=== PATIENT | male | born 1960 | race Caucasian/White ===

== ENCOUNTER → 2017-06-25 | Outpatient (CLI) | payer OTHER ==
[~2017-06-25] MED LIST: AMLO2.5T PO; ASPI81TA28 PO; LISI-461 PO
== END | disposition home or self-care (01) ==
LOC: C.CPL 11:21
PROVIDERS: ATTEND Orthopaedic Surgery
DX: M19.011 Primary osteoarthritis, right shoulder (principal)

== ENCOUNTER 2025-07-13 12:35 | Observation (INO) ==
[2025-07-13 13:20] LABS: Hematocrit (blood only) 43.8 % (42.0-52.0); Hemoglobin 15.2 g/dL (14.0-18.0); Immature Granulocytes # (auto) 0.06 K/uL (0.01-0.20); Immature Granulocytes % (auto) 0.3 %; Mean Corpuscular Hemoglobin 32.3 pg (25.0-34.0); Mean Corpuscular Volume 93.2 fL (80.0-100.0); Platelet Count 264 K/uL (130-400); RDW Standard Deviation 45.1 fL (36.4-46.3); Red Blood Count 4.70 M/uL (4.70-6.10); White Blood Count 19.70 K/ul (4.8-10.8)
--- NOTE | 2025-07-13 13:25 | Emergency Department Note ---
Impression & Plan Hypoxia, Pneumonia ED Provider Note CHIEF COMPLAINT: Shortness of breath, right upper quadrant pain, chest pain HISTORY OF PRESENTING ILLNESS: Patient is a 64-year-old male who presents to the emergency department today for complaints of shortness of breath and right upper quadrant pain. He reports an onset of about 3 weeks ago. He was seen at urgent care and started on an antibiotic for pneumonia but never had a chest x-ray completed. He reports taking the full course of the antibiotic and then a day or 2 after completing it his symptoms got worse again. He went back to urgent care was placed on a second antibiotic and treated with another course of antibiotics. The day after starting the antibiotics he went on a cruise to the [facility]. 3 weeks ago he had a recent colonoscopy. He is an ex-smoker but denies drug use. He does report a productive cough of thick blood-tinged green/yellow mucus. He denies any lightheadedness, dizziness, syncope, nausea, vomiting, diarrhea. Patient denies chest pain, sob, breathing difficulties, abdominal pain, headache, fevers/chills, blood in stool or urine, any recent illness, or any recent travel. REVIEW OF SYSTEMS: See HPI for pertinent positives and pertinent negatives. ALLERGIES: See below MEDICATIONS: See below PAST MEDICAL HISTORY: See below PHYSICAL EXAM: VITALS: Vitals are noted on the nurse's note and reviewed by myself. GENERAL: Non toxic, in no acute distress, non-diaphoretic. SKIN: Capillary refill <2 sec. EYES: PERRLA. EOMI. Conjunctivae without injection, sclerae without icterus. NOSE: Patent without discharge. MOUTH: Mucous membranes moist. Uvula midline. Airway patent. NECK: Supple without nuchal rigidity. HEART: Regular rate and rhythm without murmurs gallops or rubs. LUNGS: Clear to auscultation bilaterally without wheezes, rales or rhonchi. No retractions or accessory muscle use. ABDOMEN: Positive bowel sounds x 4. Normal tympanic percussion. Soft, nontender to palpation. No masses or hepatosplenomegaly. Mccarthy sign negative. No CVA tenderness. No guarding, rigidity, or rebound tenderness. No focal RLQ or LLQ tenderness. MUSCULOSKELETAL: No gross musculoskeletal defects. NEURO: Patient was alert and oriented. No focal neurological deficits. DIFFERENTIAL DIAGNOSIS: Differential diagnosis includes acute coronary syndrome, pulmonary embolism, pneumothorax, pericarditis, myocarditis, endocarditis, anxiety, musculoskeletal pain, GERD, costochondritis, pneumonia, among others. ED COURSE AND MEDICAL DECISION MAKING: HISTORY FROM INDEPENDENT HISTORIAN: History was provided by the patient and his who is at bedside and secondary historian. MONITOR: Continuous registered nurse cardiac telemetry: Order was placed for continuous registered nurse cardiac telemetry. Patient was placed on the registered nurse cardiac telemetry and continuous pulse ox. Patient was noted to be in normal sinus rhythm at an initial rate of 82 bpm per my interpretation. EKG: EKG was interpreted by myself as normal sinus rhythm at a rate of 85 bpm. INTERPRETATION OF LABS: I interpreted the labs with full lab results as below in the lab section of this note. Laboratory results pertinent to the emergent complaint are discussed in the MDM section below. The patient was advised to follow up with their PCP and/or specialist(s) for further outpatient monitoring and management of any abnormal results. INTERPRETATION OF IMAGING: Imaging studies were interpreted by myself and read by radiology as per the imaging section of this note. The patient was advised to follow up with their PCP and/or specialist(s) for further outpatient management of any non-emergent abnormal findings. CHRONIC MEDICAL/SOCIAL CONDITIONS AFFECTING CARE: No social concerns were identified as barriers to patients care. ESCALATION OF CARE CONSIDERED: I considered admission on this patient due to a persistent ongoing pneumonia. CONSULTATIONS: I consulted with Dr. Arredondo for admission and the patient was accepted. SUMMARY: I examined the patient for complaints of shortness of breath, chest pain. A physical exam and history were performed. Nursing notes, EMR, and medication list were personally reviewed. This patient presents with dyspnea, most likely secondary to persistent pneumonia. Presentation not consistent with acute cardiac etiologies to include ACS, CHF, pericardial effusion / tamponade . Presentation concerning for pneumonia or PE. Patient had recent travel, colonoscopy, with hemoptysis. CTA PE rule out was negative for PE. Chest x-ray showed no acute findings. CBC with leukocytosis with white blood cell count of 19.70. No anemia or thrombocytopenia. PT/INR and APTT were normal. CMP without emergent findings. Troponin 4.2. Pro-Sami 0.08. Lactate was 1. Patient was given 1 L normal saline and started on Rocephin 2 g here in the emergency department. Patient began to desat into the upper 80s and was placed on 2 L of oxygen via nasal cannula with improvement to an O2 sat of 91%. CT of the abdomen and pelvis showed no acute infectious or inflammatory findings. With the patient's persistent symptoms and oxygen requirement I consulted with Dr. Cross who accepts the patient for admission to the hospital. DIAGNOSIS: Pneumonia, hypoxia TREATMENT PLAN/DISCHARGE INSTRUCTIONS: Admit to hospitalist services. The chart was completed utilizing [employer] Speech voice recognition software.Grammatical errors, random word insertions, pronoun errors, and incomplete sentences are an occasional consequence of this system due to software limitations, ambient noise, and hardware issues.Any formal questions or concerns about the content, text, or information contained within the body of this dictation should be directly addressed to the physician for clarification. Past Med/Surg History Problem List (Updated 07/13/25 @ 16:15 by XAVIER Bajwa) Hypoxia (Acute) Pneumonia (Acute) Hx of shoulder surgery (Acute) Hypertension (Chronic) Asthma (Chronic) Chest pain (Acute) Dizziness Social History Smoking Status: Never smoker Preferred Language: Austrian Feels Safe at Home: Yes Allergies Allergies Allergy/AdvReac Type Severity Reaction Status Date / Time No Known Allergies Allergy Mild Unverified 08/18/20 09:04 Home Meds Home Medications Medication Instructions Recorded Confirmed albuterol sulfate 90 mcg/actuation 2 puff inhalation Q4 PRN Wheezing 02/08/25 07/13/25 aerosol inhaler fluticasone propionate 50 2 spray intranasal QAM 02/08/25 07/13/25 mcg/actuation nasal spray,suspension Results & Data (ED) Vital Signs Vital Signs - 24 hr 07/13/25 12:35 07/13/25 12:58 07/13/25 12:58 Temperature 37 C Temperature Source Temporal Artery Scan Pulse Rate 89 Pulse Rate [Apical] Respiratory Rate 24 Respiratory Effort / Characteristics Non-Labored Spontaneous Non-Labored SOB on Exertion Respiratory Depth Normal Respiratory Pattern Regular Blood Pressure 176/92 H Blood Pressure [Right Arm] Blood Pressure Mean 120 Blood Pressure Mean [Right Arm] Blood Pressure Position Sitting Pulse Oximetry 92 93 Oxygen Delivery Method Room Air Room Air Room Air Oxygen Flow Rate Sepsis Recent Fever Within 48 Hours No Sepsis New/Unexplained Change in Mental Status No Sepsis Action Taken by Nursing No Action Required 07/13/25 12:58 07/13/25 13:18 07/13/25 14:00 Temperature Temperature Source Pulse Rate 83 82 Pulse Rate [Apical] 82 Respiratory Rate 18 18 Respiratory Effort / Characteristics Non-Labored Spontaneous Respiratory Depth Normal Respiratory Pattern Regular Blood Pressure Blood Pressure [Right Arm] 126/83 Blood Pressure Mean Blood Pressure Mean [Right Arm] 97 Blood Pressure Position Pulse Oximetry 93 88 L Oxygen Delivery Method Room Air Room Air Oxygen Flow Rate Sepsis Recent Fever Within 48 Hours Sepsis New/Unexplained Change in Mental Status Sepsis Action Taken by Nursing 07/13/25 14:02 Temperature Temperature Source Pulse Rate Pulse Rate [Apical] Respiratory Rate Respiratory Effort / Characteristics Respiratory Depth Respiratory Pattern Blood Pressure Blood Pressure [Right Arm] Blood Pressure Mean Blood Pressure Mean [Right Arm] Blood Pressure Position Pulse Oximetry 91 Oxygen Delivery Method Nasal Cannula Oxygen Flow Rate 2 Sepsis Recent Fever Within 48 Hours Sepsis New/Unexplained Change in Mental Status Sepsis Action Taken by Nursing Laboratory Data 07/13/25 12:50 07/13/25 12:50 Lab Results 07/13/25 07/13/25 Range/Units 12:50 13:34 WBC 19.70 H (4.8-10.8) K/ul RBC 4.70 (4.70-6.10) M/uL Hgb 15.2 (14.0-18.0) g/dL Hct 43.8 (42.0-52.0) % MCV 93.2 (80.0-100.0) fL MCH 32.3 (25.0-34.0) pg MCHC 34.7 (32.0-36.0) g/dL RDW Std Deviation 45.1 (36.4-46.3) fL RDW Coeff of David 13.1 (11.5-14.5) % Plt Count 264 (130-400) K/uL MPV 9.7 (9.4-12.4) fL Immature Gran % (Auto) 0.3 % Neut % (Auto) 84.4 % Lymph % (Auto) 9.6 % [place] % (Auto) 4.8 % Eos % (Auto) 0.6 % Baso % (Auto) 0.3 % Neut # (Auto) 16.64 H (1.40-6.50) K/uL Lymph # (Auto) 1.90 (1.20-3.40) K/uL Kitt[place] # (Auto) 0.94 H (0.11-0.59) K/uL Eos # (Auto) 0.11 (0.00-0.50) K/uL Baso # (Auto) 0.05 (0.00-0.20) K/uL Immature Gran # (Auto) 0.06 (0.01-0.20) K/uL PT 10.7 (9.0-12.0) Seconds INR 1.0 (0.9-1.1) APTT 25 (21-31) Seconds PTT Ratio 0.9 Sodium 137 (136-145) mmol/L Potassium 3.9 (3.5-5.1) mmol/L Chloride 102 (98-107) mmol/L Carbon Dioxide 29 (21-32) mmol/L Anion Gap 6 (3-11) BUN 13 (6-23) mg/dl Creatinine 0.73 (0.6-1.4) mg/dl Est Cr Clr Drug Dosing 120.2 ml/min eGFR 102.23 BUN/Creatinine Ratio 17.8 (10-20) Glucose 111 H (70-99(Fasting)) mg/dl Lactate 1.0 (0.4-2.0) mmol/L Calcium 9.1 (8.6-10.3) mg/dl Total Bilirubin 0.8 (0.2-1.0) mg/dl AST 22 (13-39) U/L ALT 27 (7-52) U/L Alkaline Phosphatase 89 (34-104) U/L Troponin I High Sens 4.2 (0-20) pg/ml Total Protein 7.6 (6.0-8.3) gm/dl Albumin 4.3 (3.4-5.0) gm/dl Globulin 3.3 (2.5-4.0) gm/dl Albumin/Globulin Ratio 1.3 (0.9-2) Procalcitonin 0.08 (0-0.5) ng/ml Administered Medications Discontinued Medications Sodium Chloride (Nss) 1,000 mls @ 999 mls/hr IV .Q1H1M ONE Stop: 07/13/25 14:25 Last Admin: 07/13/25 13:30 Dose: 999 mls/hr Documented By: GOLDY Ioversol (Optiray 320 125ml) 118 ml IV ONCE ONE Stop: 07/13/25 15:03 Last Admin: 07/13/25 15:03 Dose: 118 ml Documented By: ENRIKE Imaging Data Radiologist's Impression: Chest X-Ray 07/13/25 12:43 SINGLE VIEW CHEST CLINICAL HISTORY: Chest pain FINDINGS: An AP, portable, upright chest radiograph is compared to study dated 02/08/2025. The heart is enlarged. The pulmonary vasculature is noncongested. There is mild bibasilar atelectasis. The lungs and pleural spaces are otherwise clear. No pneumothorax is seen. The bony thorax is grossly intact. IMPRESSION: Cardiomegaly with no acute cardiopulmonary abnormality identified. ACT 112: Negative or not required by law. Electronically signed by: Lorne Rios M.D. 07/13/2025 1:37 PM Abdomen/Pelvis CT 07/13/25 13:06 CT SCAN OF THE ABDOMEN AND PELVIS WITH IV CONTRAST CLINICAL HISTORY: Right upper quadrant abdominal pain. COMPARISON STUDY: No priors. TECHNIQUE: Following the IV administration of 118 cc of Optiray 320, CT scan of the abdomen and pelvis is performed from the lung bases to the proximal femora. Images are reviewed in the axial, sagittal, and coronal planes. IV contrast was administered without complication. A dose lowering technique was utilized adhering to the principles of ALARA. CT DOSE: 2477.85 mGy.cm FINDINGS: Lung bases: The heart is mild enlargement noting trace pericardial effusion. There is trace pleural fluid on the right. Mild atelectasis is noted at the lung bases. There is no airspace consolidation typical for pneumonia. A small hiatal hernia is observed. Liver: The contrast-enhanced liver is normal in size, contour, and attenuation. There is no intrahepatic biliary ductal dilatation. The hepatic veins and portal veins are patent. Gallbladder: Unremarkable. Spleen: Normal in size and attenuation. Pancreas: Unremarkable. Adrenal glands: Unremarkable. Kidneys: The contrast enhanced kidneys are normal in size and without hydronephrosis. The kidneys enhance symmetrically. A 3.5 cm cyst is noted on the left. No ureteral stone is seen. Abdominal vasculature: The abdominal aorta is normal in course and caliber noting mild atherosclerotic calcification. 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 Bowel: There is mild to moderate sigmoid diverticulosis without CT evidence of acute diverticulitis. No bowel obstruction is seen. The appendix is well- visualized and normal. Peritoneum: There is no intraperitoneal free air or abdominal ascites. There is a fat-containing umbilical hernia. Lymphadenopathy: None. Pelvic viscera: The bladder, prostate, and seminal vesicles are normal as visualized. Skeletal structures: No lytic or blastic lesions are seen. There is mild lumbosacral spondylosis. A right-sided pars defect is seen at L5 IMPRESSION: 1. No acute infectious or inflammatory findings are identified in the abdomen or pelvis. 2. Mild cardiomegaly and trace right pleural effusion. 3. Sigmoid diverticulosis without CT evidence of acute diverticulitis. 4. Additional findings as above. ACT 112: Negative or not required by law. Electronically signed by: Lorne Rios M.D. 07/13/2025 3:43 PM Chest CTA 07/13/25 13:06 CT angio chest PE protocol HISTORY: 64 years-old Male with PE. Acute shortness of breath with chest pain TECHNIQUE: Multiple CTA images of the chest were obtained after the intravenous administration of 118 ml Optiray. Coronal and sagittal MIPS were obtained from the axial data set and were submitted for review. All measurements were obtained according to NASCET criteria. A dose lowering technique was utilized adhering to the principles of ALARA. COMPARISON: Chest radiograph 07/13/2025 FINDINGS: CTA: Borderline enlarged heart. No pericardial effusion. Mild coronary artery calcifications. No thoracic aortic aneurysm or dissection. No pulmonary emboli are seen. CT CHEST: Unremarkable thyroid. There are a few borderline enlarged mediastinal lymph nodes including a 2.3 x 1.1 cm right paratracheal lymph node on image 180. A few borderline enlarged right hilar lymph nodes are also present. There are nonspecific and favored to be benign. No pneumothorax, pleural effusion or lobar airspace consolidation. There is asymmetric interlobular septal thickening of the left upper lobe with mild groundglass densities. CT abdomen and pelvis dictated separately. Probable hepatic steatosis. Unremarkable soft tissues. No acute fracture is seen. Calcified focus within the right subscapularis distributions likely benign. IMPRESSION: 1. No pulmonary emboli identified. 2. Mild asymmetric intralobular septal thickening of the left upper lobe is a nonspecific finding and may represent asymmetric interstitial pulmonary edema. 3. There are several borderline enlarged mediastinal and hilar lymph nodes which are nonspecific, favored to be benign. ACT 112: Negative or not required by law. The above report was generated using voice recognition software. It may contain grammatical, syntax or spelling errors. Electronically signed by: Faustino Boyd M.D. 07/13/2025 3:15 PM Discharge Plan Visit Data Chief Complaint: Chest Pain Stated Complaint: CHEST PAIN EXT TO BACK/HARD TIME BREATHING ED Provider: Michelle Galvez ED Midlevel Provider: Evette Venegas Discharge Problem: Hypoxia, Pneumonia Patient Disposition: Admitted As Inpatient Condition: Good Prescriptions Prescriptions: No Action fluticasone propionate 50 mcg/actuation spray,suspension 2 spray INTRANASAL QAM albuterol sulfate 90 mcg/actuation HFA aerosol inhaler 2 puff INHALATION Q4 PRN (Reason: Wheezing) Referrals Referrals: Franco Bernstein MD [Primary Care Provider] - Discharge Problem: Pneumonia Qualifiers: Pneumonia type: due to unspecified organism Laterality: unspecified laterality Lung location: unspecified part of lung Qualified Code(s): J18.9 - Pneumonia, unspecified organism
[2025-07-13] MEDS: SODIUM CHLORIDE 0.9% 1,000 ML IV ONE (13:30)
[2025-07-13 13:35] LABS: Alanine Aminotransferase 27.0 U/L (7-52); Albumin Globulin Ratio 1.3 (0.9-2); Albumin Level 4.3 gm/dl (3.4-5.0); Alkaline Phosphatase 89.0 U/L (34-104); Anion Gap 6.0 (3-11); Bilirubin,Total 0.8 mg/dl (0.2-1.0); Blood Urea Nitrogen 13.0 mg/dl (6-23); Calcium 9.1 mg/dl (8.6-10.3); Carbon Dioxide 29.0 mmol/L (21-32); Chloride 102.0 mmol/L (98-107); Creatinine Clr Calc Pharmacy 120.2 ml/min; Globulin 3.3 gm/dl (2.5-4.0); Glucose 111.0 mg/dl (70-99(Fasting)); Potassium 3.9 mmol/L (3.5-5.1); Sodium 137.0 mmol/L (136-145); Total Protein 7.6 gm/dl (6.0-8.3)
--- NOTE | 2025-07-13 13:39 | XRay Report ---
SINGLE VIEW CHEST CLINICAL HISTORY: Chest pain FINDINGS: An AP, portable, upright chest radiograph is compared to study dated 02/08/2025. The heart i s enlarged. The pulmonary vasculature is noncongested. There is mild bibasilar atelectasis. The lungs and pleural spaces are otherwise clear. No pneumothorax is seen. The bony thorax is grossly intact. IMPRESSION: Cardiomegaly with no acute cardiopulmonary abnormality identified. ACT 112: Negative or not required by law. Electronically signed by: oLrne Rios M.D. 07/13/2025 1:37 PM
[2025-07-13 13:54] LABS: INR 1.0 (0.9-1.1); Partial Thromboplastin Time 25 Seconds (21-31); Prothrombin Time 10.7 Seconds (9.0-12.0)
--- NOTE | 2025-07-13 14:40 | Electrocardiogram Report ---
Test Reason : Blood Pressure : */* mmHG Vent. Rate : 85 BPM Atrial Rate : 85 BPM P-R Int : 142 ms QRS Dur : 88 ms QT Int : 366 ms P-R-T Axes : 12 -18 20 degrees QTcB Int : 435 ms Normal sinus rhythm Normal ECG When compared with ECG of 08-Feb-2025 16:43, Criteria for Septal infarct are no longer Present Confirmed by Domenico Robertson ([id number]) on 07/13/2025 2:39:56 PM Referred By: Confirmed By: Domenico Robertson
[2025-07-13] MEDS: OPTIRAY 320 125ml IV ONE (15:03)
--- NOTE | 2025-07-13 15:17 | CT Scan Report ---
CT angio chest PE protocol HISTORY: 64 years-old Male with PE. Acute shortness of breath with chest pain TECHNIQUE: Multiple CTA images of the chest were obtained after the intravenous administration of 118 ml Optiray. Coronal and sagittal MIPS were obtained from the axial data set and were submitted for review. All measurements were obtained according to NASCET criteria. A dose lowering technique was u tilized adhering to the principles of ALARA. COMPARISON: Chest radiograph 07/13/2025 FINDINGS: CTA: Borderline enlarged heart. No pericardial effusion. Mild coronary artery calcifications. No thoracic aortic aneurysm or dissection. No pulmonary emboli are seen. CT CHEST: Unremarkable thyroid. There are a few borderline enlarged mediastinal lymph nodes including a 2.3 x 1 .1 cm right paratracheal lymph node on image 180. A few borderline enlarged right hilar lymph nodes a re also present. There are nonspecific and favored to be benign. No pneumothorax, pleural effusion or lobar airspace consolidation. There is asymmetric interlobular s eptal thickening of the left upper lobe with mild groundglass densities. CT abdomen and pelvis dictat ed separately. Probable hepatic steatosis. Unremarkable soft tissues. No acute fracture is seen. Calc ified focus within the right subscapularis distributions likely benign. IMPRESSION: 1. No pulmonary emboli identified. 2. Mild asymmetric intralobular septal thickening of the left upper lobe is a nonspecific finding and may represent asymmetric interstitial pulmonary edema. 3. There are several borderline enlarged mediastinal and hilar lymph nodes which are nonspecific, fav ored to be benign. ACT 112: Negative or not required by law. The above report was generated using voice recognition software. It may contain grammatical, syntax o r spelling errors. Electronically signed by: Faustino Boyd M.D. 07/13/2025 3:15 PM
--- NOTE | 2025-07-13 15:45 | CT Scan Report ---
CT SCAN OF THE ABDOMEN AND PELVIS WITH IV CONTRAST CLINICAL HISTORY: Right upper quadrant abdominal pain. COMPARISON STUDY: No priors. TECHNIQUE: Following the IV administration of 118 cc of Optiray 320, CT scan of the abdomen and pelv is is performed from the lung bases to the proximal femora. Images are reviewed in the axial, sagitta l, and coronal planes. IV contrast was administered without complication. A dose lowering technique w as utilized adhering to the principles of ALARA. CT DOSE: 2477.85 mGy.cm FINDINGS: Lung bases: The heart is mild enlargement noting trace pericardial effusion. There is trace pleural f luid on the right. Mild atelectasis is noted at the lung bases. There is no airspace consolidation ty pical for pneumonia. A small hiatal hernia is observed. Liver: The contrast-enhanced liver is normal in size, contour, and attenuation. There is no intrahepa tic biliary ductal dilatation. The hepatic veins and portal veins are patent. Gallbladder: Unremarkable. Spleen: Normal in size and attenuation. Pancreas: Unremarkable. Adrenal glands: Unremarkable. Kidneys: The contrast enhanced kidneys are normal in size and without hydronephrosis. The kidneys enh ance symmetrically. A 3.5 cm cyst is noted on the left. No ureteral stone is seen. Abdominal vasculature: The abdominal aorta is normal in course and caliber noting mild atheroscleroti c calcification. 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 Bowel: There is mild to moderate sigmoid diverticulosis without CT evidence of acute diverticulitis. No bowel obstruction is seen. The appendix is well-visualized and normal. Peritoneum: There is no intraperitoneal free air or abdominal ascites. There is a fat-containing umbi lical hernia. Lymphadenopathy: None. Pelvic viscera: The bladder, prostate, and seminal vesicles are normal as visualized. Skeletal structures: No lytic or blastic lesions are seen. There is mild lumbosacral spondylosis. A r ight-sided pars defect is seen at L5 IMPRESSION: 1. No acute infectious or inflammatory findings are identified in the abdomen or pelvis. 2. Mild cardiomegaly and trace right pleural effusion. 3. Sigmoid diverticulosis without CT evidence of acute diverticulitis. 4. Additional findings as above. ACT 112: Negative or not required by law. Electronically signed by: Lorne Rios M.D. 07/13/2025 3:43 PM
[2025-07-13] MEDS: cefTRIAXone SODIUM 2,000 MG/50 ML BAG IV STA (16:33)
--- NOTE | 2025-07-13 17:00 | History & Physical Report ---
Date of Service July 13, 2025 Assessment & Plan (1) Asthmatic bronchitis: Plan: Will obtain sputum culture if sputum is produced. Levofloxacin started in the ED, day 1. Parenteral steroid therapy. Scheduled DuoNebs (2) Acute respiratory failure with hypoxia: Plan: Mild on admission. Supplemental oxygen per nasal cannula to maintain saturation greater than 90%. Wean off as tolerated (3) Hypertension: Plan: He is not on any current medical management. Will follow Plan Hopeful discharge to home within the next 2 to 3 days. History of Present Illness Chief Complaint: Shortness of breath, wheezing, productive cough Primary Care Provider: Franco Bernstein MD 64-year-old white male who for the past week or so has had a productive cough with greenish discolored sputum, wheezing, shortness of breath. He denies pleuritic type chest pain or gross hemoptysis. He has been seen in urgent care twice and felt better while on oral antibiotics but symptoms returned shortly after the antibiotics were discontinued. He was seen in the ED today, July 13, and chest x-ray is negative for pneumonia and CTA negative for PE. Clinically he has asthmatic bronchitis. Sputum culture will be obtained if sputum is produced. Levaquin has been started intravenously along with parenteral steroid therapy and he will be on scheduled DuoNebs. He will be admitted for further evaluation and treatment. Allergies Allergy/AdvReac Type Severity Reaction Status Date / Time No Known Allergies Allergy Mild Unverified 08/18/20 09:04 Home Medications Medication Instructions Recorded Confirmed Type albuterol sulfate 90 mcg/actuation 2 puff inhalation Q4 PRN Wheezing 02/08/25 07/13/25 History aerosol inhaler fluticasone propionate 50 2 spray intranasal QAM 02/08/25 07/13/25 History mcg/actuation nasal spray,suspension Past Med/Surg History Problem List (Updated 07/13/25 @ 17:00 by Faisal San MD) Acute respiratory failure with hypoxia Asthmatic bronchitis Hypoxia (Acute) Pneumonia (Acute) Hx of shoulder surgery (Acute) Hypertension (Chronic) Asthma (Chronic) Chest pain (Acute) Dizziness Social History Smoking Status: Never smoker Preferred Language: Kinyarwanda Feels Safe at Home: Yes Review of Systems 2 Review of Systems: Constitutionalno fever or chills ENTno blurred vision, no double vision, no epistaxis, no sore throat Respiratoryproductive cough, discolored sputum, wheezing, shortness of breath Cardiacno palpitations, no chest pain, no syncope Brain nausea, vomiting, diarrhea, melena, hematochezia GUno urinary retention, no urinary incontinence, no dysuria, no hematuria Musculoskeletalno joint pain, no muscle tenderness Skinno bruising, no rashes, no pruritus Neurono isolated weakness, no paresthesia, no weakness Psychno depression, no anxiety Physical Exam 2 Physical Exam: General-alert and oriented x3, no fever, no chills HEENT-head atraumatic and normocephalic, pupils equal and reactive to light, extraocular muscles intact Neck-no lymphadenopathy or thyromegaly, trachea midline Chest-midline rhonchi, bilateral expiratory wheezes. No dullness to percussion. No pleural friction rub. No inspiratory rales Cardiac-regular rate and rhythm, normal S1 and S2 Abdomen-normal bowel sounds, no hepatosplenomegaly Extremities-no cyanosis, clubbing, or edema Neuro-cranial nerves II through XII intact, motor and sensory function within normal limits, strength symmetrical, no focal deficits Psych-normal affect, normal mood Results & Data Results & Data Vital Signs (Past 12 Hours) Vital Signs Temp Pulse Pulse Resp BP BP Pulse Ox 07/13/25 16:30 84 19 176/99 H 94 07/13/25 16:00 76 20 154/88 H 95 07/13/25 15:30 76 20 154/94 H 95 07/13/25 15:15 73 19 96 07/13/25 14:02 91 07/13/25 14:00 82 18 126/83 88 L 07/13/25 13:18 82 07/13/25 12:58 83 18 93 07/13/25 12:58 93 07/13/25 12:58 07/13/25 12:35 37 C 89 24 176/92 H 92 O2 Del Method O2 Flow Rate 07/13/25 16:30 Nasal Cannula 2 07/13/25 16:00 Nasal Cannula 2 07/13/25 15:30 Nasal Cannula 2 07/13/25 15:15 Nasal Cannula 2 07/13/25 14:02 Nasal Cannula 2 07/13/25 14:00 Room Air 07/13/25 13:18 07/13/25 12:58 Room Air 07/13/25 12:58 Room Air 07/13/25 12:58 Room Air 07/13/25 12:35 Room Air Laboratory Results 07/13/25 12:50 07/13/25 12:50 Code Status & VTE Plan Code Status Full PG Care Time/CCT Total # of Minutes Spent Total Time Spent with Patient: Total time spent is greater than 50% in coordination of care (as documented) at patient's floor/unit and/or counseling patient: Coding Level of Care Code 81806 INT INP/OBS CARE 3/75MIN Diagnoses Asthmatic bronchitis J45.909 Acute respiratory failure with hypoxia J96.01 Hypertension I10 Hypertension type: unspecified (3) Hypertension Hypertension type: unspecified Qualified Code(s): I10 - Essential (primary) hypertension
[2025-07-13] MEDS ORDERED: ONDANSETRON INJ 2 MG/ML 2 ML VIAL IV PRN (18:37)
[2025-07-13] MEDS ORDERED: methylPREDNISolone 10 mg/mL (For Ped Dose < 7mg) IV SCH (18:37)
[2025-07-13] MEDS ORDERED: ACETAMINOPHEN 325 MG TAB PO PRN (18:37)
[2025-07-13] MEDS: ALBUT/IPRATROP 3MG/0.5MG NEB 3 ML VIAL NEB SCH (20:05)
[2025-07-14 06:40] LABS: Hematocrit (blood only) 41.4 % (42.0-52.0); Hemoglobin 14.4 g/dL (14.0-18.0); Mean Corpuscular Hemoglobin 32.5 pg (25.0-34.0); Mean Corpuscular Volume 93.5 fL (80.0-100.0); Platelet Count 249 K/uL (130-400); RDW Standard Deviation 44.9 fL (36.4-46.3); Red Blood Count 4.43 M/uL (4.70-6.10); White Blood Count 11.08 K/ul (4.8-10.8)
[2025-07-14 06:54] LABS: Anion Gap 6.0 (3-11); Blood Urea Nitrogen 15.0 mg/dl (6-23); Calcium 8.9 mg/dl (8.6-10.3); Carbon Dioxide 26.0 mmol/L (21-32); Chloride 104.0 mmol/L (98-107); Creatinine Clr Calc Pharmacy 101.1 ml/min; Glucose 168.0 mg/dl (70-99(Fasting)); Potassium 4.4 mmol/L (3.5-5.1); Sodium 136.0 mmol/L (136-145)
[2025-07-14 07:17] LABS: Immature Granulocytes # (auto) 0.05 K/uL (0.01-0.20); Immature Granulocytes % (auto) 0.5 %
[2025-07-14] MEDS: ENOXAPARIN INJ 40 MG/0.4 ML SYR SQ SCH (08:37)
--- NOTE | 2025-07-14 12:01 | Hospitalist Progress Note ---
Date of Service July 14, 2025 Assessment & Plan (1) Asthmatic bronchitis: Plan: Much improved. Parenteral steroid therapy switched over to prednisone which will eventually be tapered off. Continue intravenous Levaquin for now, day 2. Will obtain sputum culture if sputum is produced. (2) Acute respiratory failure with hypoxia: Plan: Resolved. He is now on room air. (3) Hypertension: Plan: Stable. He is not on any current medical management. Will follow Plan Anticipate discharge to home tomorrow, July 15 Admission and Anticipated Discharge Date Admission Date: July 13, 2025 Subjective The patient states he feels much better today. Oxygen has been discontinued and he is now on room air. Parenteral steroid therapy switched over to oral prednisone which will eventually be tapered off. He remains on intravenous Levaquin. Hopefully he can go home tomorrow, July 15 Review of Systems 2 Review of Systems: Constitutionalno fever or chills ENTno blurred vision, no double vision, no epistaxis, no sore throat Respiratoryproductive cough has resolved, wheezing and shortness of breath have resolved Cardiacno palpitations, no chest pain, no syncope Brain nausea, vomiting, diarrhea, melena, hematochezia GUno urinary retention, no urinary incontinence, no dysuria, no hematuria Musculoskeletalno joint pain, no muscle tenderness Skinno bruising, no rashes, no pruritus. Mild facial and neck flushing from parenteral steroid therapy Neurono isolated weakness, no paresthesia, no weakness Psychno depression, no anxiety Physical Exam 2 Physical Exam: General-alert and oriented x3, no fever, no chills HEENT-head atraumatic and normocephalic, pupils equal and reactive to light, extraocular muscles intact Neck-no lymphadenopathy or thyromegaly, trachea midline Chest-very scant midline rhonchi, bilateral expiratory wheezes have resolved. No dullness to percussion. No pleural friction rub. No inspiratory rales Cardiac-regular rate and rhythm, normal S1 and S2 Abdomen-normal bowel sounds, no hepatosplenomegaly Extremities-no cyanosis, clubbing, or edema Neuro-cranial nerves II through XII intact, motor and sensory function within normal limits, strength symmetrical, no focal deficits Psych-normal affect, normal mood Results & Data Results & Data Vital Signs (Past 12 Hours) Vital Signs Temp Pulse Pulse Resp BP Pulse Ox O2 Del Method 07/14/25 11:10 92 Room Air 12/23/25 08:37 36.3 C L 99 H 18 168/87 H 91 Nasal Cannula 07/14/25 08:00 Nasal Cannula 07/14/25 07:11 92 H 18 98 Nasal Cannula 07/14/25 06:33 Nasal Cannula 07/14/25 02:51 36.6 C 78 18 138/71 94 Nasal Cannula 07/14/25 00:38 90 07/14/25 00:38 Nasal Cannula O2 Flow Rate 07/14/25 11:10 07/14/25 08:37 1 07/14/25 08:00 1 07/14/25 07:11 2 07/14/25 06:33 2 07/14/25 02:51 2 07/14/25 00:38 07/14/25 00:38 2 Laboratory Results 07/14/25 05:50 07/14/25 05:50 PG Care Time/CCT Total # of Minutes Spent Total Time Spent with Patient: Total time spent is greater than 50% in coordination of care (as documented) at patient's floor/unit and/or counseling patient: Coding Level of Care Code 24644 SUB INP/OBS CARE 235MIN Diagnoses Asthmatic bronchitis J45.909 Acute respiratory failure with hypoxia J96.01 Hypertension I10 Hypertension type: unspecified (3) Hypertension Hypertension type: unspecified Qualified Code(s): I10 - Essential (primary) hypertension
[2025-07-15 06:52] LABS: Hematocrit (blood only) 38.0 % (42.0-52.0); Hemoglobin 13.2 g/dL (14.0-18.0); Immature Granulocytes # (auto) 0.09 K/uL (0.01-0.20); Immature Granulocytes % (auto) 0.6 %; Mean Corpuscular Hemoglobin 32.6 pg (25.0-34.0); Mean Corpuscular Volume 93.8 fL (80.0-100.0); Platelet Count 239 K/uL (130-400); RDW Standard Deviation 46.4 fL (36.4-46.3); Red Blood Count 4.05 M/uL (4.70-6.10); White Blood Count 15.21 K/ul (4.8-10.8)
[2025-07-15 07:45] LABS: Anion Gap 7.0 (3-11); Blood Urea Nitrogen 18.0 mg/dl (6-23); Calcium 8.5 mg/dl (8.6-10.3); Carbon Dioxide 27.0 mmol/L (21-32); Chloride 105.0 mmol/L (98-107); Creatinine Clr Calc Pharmacy 99.4 ml/min; Glucose 128.0 mg/dl (70-99(Fasting)); Potassium 4.0 mmol/L (3.5-5.1); Sodium 139.0 mmol/L (136-145)
--- NOTE | 2025-07-15 08:19 | Discharge Summary ---
Discharge Summary Date of Service July 15, 2025 Principal Dx & Hospital Course #1 = Principal Diagnosis (1) Asthmatic bronchitis: Much improved. Parenteral steroid therapy has been switched over to prednisone which will eventually be tapered off. Treated while hospitalized with intravenous Levaquin. He will be discharged on oral Levaquin for 5 more days. . (2) Acute respiratory failure with hypoxia: Resolved. He is now on room air. (3) Hypertension: Stable. He is not on any current medical management. Will follow Plan Home today, July 15. Admission HPI Per Admitting Provider 64-year-old white male who for the past week or so has had a productive cough with greenish discolored sputum, wheezing, shortness of breath. He denies pleuritic type chest pain or gross hemoptysis. He has been seen in urgent care twice and felt better while on oral antibiotics but symptoms returned shortly after the antibiotics were discontinued. He was seen in the ED today, July 13, and chest x-ray is negative for pneumonia and CTA negative for PE. Clinically he has asthmatic bronchitis. Sputum culture will be obtained if sputum is produced. Levaquin has been started intravenously along with parenteral steroid therapy and he will be on scheduled DuoNebs. He will be admitted for further evaluation and treatment. Discharge Exam General-alert and oriented x3, no fever, no chills HEENT-head atraumatic and normocephalic, pupils equal and reactive to light, extraocular muscles intact Neck-no lymphadenopathy or thyromegaly, trachea midline Chest-midline rhonchi have resolved. bilateral expiratory wheezes have resolved. No dullness to percussion. No pleural friction rub. No inspiratory rales Cardiac-regular rate and rhythm, normal S1 and S2 Abdomen-normal bowel sounds, no hepatosplenomegaly Extremities-no cyanosis, clubbing, or edema Neuro-cranial nerves II through XII intact, motor and sensory function within normal limits, strength symmetrical, no focal deficits Psych-normal affect, normal mood Discharge Plan Discharge Items Patient Disposition: Home - Self-Care Reason For Visit: ASTHMATIC BRONCHITIS Discharge Diagnosis: Asthmatic bronchitis, transient acute hypoxic respiratory failure Condition on Discharge: Good Activity: Resume your previous activity Non-emergency contact: Primary Care Provider Call non-emergency contact if: your symptoms worsen Follow-up/Referrals: Franco Bernstein MD [Primary Care Provider] - Diet: Regular Addtl Attending Provider Instructions: Take Levaquin daily for 5 more days. Take prednisone in a tapering dose fashion as directed. New prescriptions have been sent to your pharmacy. All other medications remain the same. See your primary care provider soon as possible for follow-up Pending Studies at Discharge: No Stand-Alone Forms: My [facility] MVP Interactive, Smoking Cessation Medications and DC Order Prescriptions: New prednisone 10 mg Tablet See Rx Instructions .ROUTE .COMPLEX Qty: 12 0RF Rx Instructions: 10 mg orally 3 times a day for 2 days, then 10 mg twice a day for 2 days, then 10 mg once a day for 2 days, then stop levofloxacin 500 mg tablet 500 mg PO DAILY 5 Days Qty: 5 0RF Continued fluticasone propionate 50 mcg/actuation spray,suspension 2 spray INTRANASAL QAM albuterol sulfate 90 mcg/actuation HFA aerosol inhaler 2 puff INHALATION Q4 PRN (Reason: Wheezing) Discharge Orders: Discharge Order (Routine); Ordered 07/15/25 Ordered By: Faisal San Admission Data Admit Date/Time: 07/13/25 16:52 Attending Provider: Faisal San Admit Provider: Faisal San Primary Care Provider: Franco Bernstein Other Providers: Faisal San Hospital Stay Data Consultations 07/13/25 16:15 ED Decision to Admit Stat Diagnostic Imagining Performed 07/13/25 13:06 CT Abd and Pelvis [CT abd pelvis IV con only] Stat CT angio chest PE protocol Stat Pending Results Patient Have Any Pending Studies at Discharge: No Discharge Instructions Given to Patient (Per Discharging Provider) Take Levaquin daily for 5 more days. Take prednisone in a tapering dose fashion as directed. New prescriptions have been sent to your pharmacy. All other medications remain the same. See your primary care provider soon as possible for follow-up Total Time Total Time Spent Total Time Spent (In Minutes): 45 minutes. Total time included patient exam, discharge planning, medication reconciliation Coding Level of Care Code 45710 INP/OBS DISCH >30 MIN Diagnoses Asthmatic bronchitis J45.909 Acute respiratory failure with hypoxia J96.01 Hypertension I10 Hypertension type: unspecified
== END 2025-07-15 09:18 | disposition home or self-care (01) | DRG 189 ==
LOC: SUATTDRO → ED 12:35 → INTOOBSV 16:52 → 2N 16:52